=== PATIENT | male | born 1980 | race Two or more races ===

== ENCOUNTER 2023-02-12 20:23 | Inpatient (IN) | payer MEDICAID ==
[~2023-02-12] VITALS: Ht 170.2 cm; Wt 70.2 kg
[2023-02-12] MEDS ORDERED: CLIN300C58 PO (20:51)
[2023-02-12] MEDS ORDERED: 0.9% SODIUM CHLORIDE 10 ML SYRINGE IVP PRN (23:00)
[2023-02-12] MEDS ORDERED: HYDROCODONE/ACETAMINOPHEN 5-325 MG TABLET PO ONE (23:00)
[2023-02-12 23:27] LABS: BASOPHILS % (AUTO) 0.4 % (0.0-2.0); EOSINOPHILS % (AUTO) 0 % (1.0-6.0); HEMATOCRIT 42.9 % (41-53); HEMOGLOBIN 14.3 g/dL (13.5-17.5); LYMPHOCYTES # (AUTO) 0.9 K/uL (1.0-4.8); LYMPHOCYTES % (AUTO) 6.9 % (22.0-44.0); MEAN CORPUSCULAR HEMOGLOBIN 31.9 pg (26.0-34.0); MEAN CORPUSCULAR HGB CONC 33.3 G/dL (31.0-37.0); MEAN CORPUSCULAR VOLUME 96 fL (80-100); MONOCYTES # (AUTO) 0.2 K/uL (0.1-1.0); MONOCYTES % (AUTO) 1.3 % (2.0-9.0); NEUTROPHILS # (AUTO) 11.5 K/uL (1.8-7.7); PLATELET COUNT (AUTO) 438 K/uL (150-450); RED BLOOD CELL COUNT(AUTO) 4.48 MIL/uL (4.50-5.90); RED CELL DISTRIBUTION WIDTH 11.9 % (11.5-14.5); WHITE BLOOD COUNT (AUTO) 12.6 K/uL (4.5-11.0)
[2023-02-12 23:31] LABS: NEUTROPHILS % (AUTO) 91.4 % (40.0-70.0)
[2023-02-12] MEDS ORDERED: LIDOCAINE 1% 10 ML VIAL SQ ONE (23:45)
[2023-02-12] MEDS ORDERED: POVIDONE-IODINE 10% 120 ML SOLUTION TP ONE (23:45)
[2023-02-12 23:47] LABS: ALANINE AMINOTRANSFERASE 48 U/L (12-78); ALBUMIN 3.3 g/dL (3.4-5.0); ALKALINE PHOSPHATASE 161 U/L (46-116); ANION GAP 10 mmol/L (8-16); ASPARTATE AMINOTRANSFERASE 16 U/L (15-37); BILIRUBIN,TOTAL 0.3 mg/dL (0.1-1.0); CALCIUM, TOTAL 9.8 mg/dL (8.8-10.5); CARBON DIOXIDE 26 mmol/L (22-29); CHLORIDE 96 mmol/L (98-107); CREATININE 0.83 mg/dL (0.60-1.30); GLOMERULAR FILTR. RATE CALC > 60 mL/min (>60); POTASSIUM 4.5 mmol/L (3.5-5.1); SODIUM SERUM 132 mmol/L (136-145); TOTAL PROTEIN, SERUM 8.6 g/dL (6.4-8.2); UREA NITROGEN, BLOOD 27 mg/dL (7-18)
[2023-02-13 00:07] LABS: GLUCOSE,RANDOM 433 mg/dL (70-110)
[2023-02-13] MEDS ORDERED: VANCOMYCIN 1GM/WATER(PEG/NADA) 200 ML IV ONE (00:30)
[2023-02-13] MEDS ORDERED: INSULIN REGULAR, HUMAN 100 UNITS/ML SQ ONE (00:30)
[2023-02-13] MEDS ORDERED: PIPERACILLIN/TAZO 3.375 GM/D5W 50 ML IV ONE (00:30)
[2023-02-13] MEDS ORDERED: ACETAMINOPHEN 325 MG TABLET PO PRN ×2 (01:00→09:15)
[2023-02-13] MEDS ORDERED: ONDANSETRON HCL 4 MG/2 ML VIAL IVP PRN ×2 (01:00→09:15)
[2023-02-13 04:00] VITALS: BP 123/80; PULSE 84; RESP 20; TEMP 98
[2023-02-13 08:13] VITALS: BP 117/75; PULSE 76; RESP 18; TEMP 98
[2023-02-13] MEDS ORDERED: BISACODYL 10 MG RECTAL RECTAL SUPPOSITORY PR PRN (09:15)
[2023-02-13] MEDS ORDERED: MAGNESIUM HYDROXIDE SUSPENSION 30 ML UDCUP PO PRN (09:15)
[2023-02-13] MEDS ORDERED: DEXTROSE 50%-WATER 25 GM/50 ML SYRINGE IVP PRN (09:15)
[2023-02-13 09:32] LABS: GLUCOMETER DEV NAME(LOC) 6S.1B; GLUCOSE,POINT OF CARE 219 MG/DL (70-110)
[2023-02-13] MEDS ORDERED: VANCOMYCIN HCL 750 MG in DEXTROSE 5%-WATER 250 ML IV ONE (10:00)
[2023-02-13] MEDS ORDERED: SODIUM CHLORIDE 0.9% 250 ML IV ONE (10:31)
[2023-02-13] MEDS: INSULIN LISPRO 100 UNITS/ML SQ PRN ×3 (11:27→21:54)
[2023-02-13 15:26] VITALS: BP 116/75; PULSE 72; RESP 18; TEMP 98.4
[2023-02-13] MEDS: HYDROCODONE/ACETAMINOPHEN 5-325 MG TABLET PO PRN (15:45)
[2023-02-13] MEDS: HEPARIN SODIUM,PORCINE 5,000 UNITS/ML VIAL SQ SCH (15:45)
[2023-02-13] MEDS: VANCOMYCIN HCL 750 MG in DEXTROSE 5%-WATER 250 ML IV SCH (16:08)
[2023-02-13] MEDS: MORPHINE SULFATE 2 MG/ML SYRINGE IVP PRN (20:07)
[2023-02-13] MEDS: DOCUSATE SODIUM 100 MG CAPSULE PO SCH (20:08)
[2023-02-13 20:47] VITALS: BP 122/79; PULSE 77; RESP 18; TEMP 98
[2023-02-13 22:15] LABS: COVID AG,FIA SOURCE NASAL SWAB
[2023-02-13 22:40] LABS: SARS-COV2 (COVID) ANTIGEN,FIA Negative (Negative)
[2023-02-14] MEDS: VANCOMYCIN HCL 750 MG in DEXTROSE 5%-WATER 250 ML IV SCH ×4 (00:08→23:38)
[2023-02-14] MEDS: HEPARIN SODIUM,PORCINE 5,000 UNITS/ML VIAL SQ SCH ×4 (00:08→23:37)
[2023-02-14 01:46] LABS: GLUCOMETER DEV NAME(LOC) 4E.2; GLUCOSE,POINT OF CARE 364 MG/DL (70-110)
[2023-02-14 01:46] LABS: GLUCOMETER DEV NAME(LOC) 4E.2; GLUCOSE,POINT OF CARE 343 MG/DL (70-110)
[2023-02-14 04:17] VITALS: BP 115/72; PULSE 76; RESP 18; TEMP 98.2
[2023-02-14 06:13] LABS: EOSINOPHILS % (AUTO) 3.9 % (1.0-6.0); HEMATOCRIT 39.1 % (41-53); HEMOGLOBIN 13.4 g/dL (13.5-17.5); LYMPHOCYTES # (AUTO) 2.8 K/uL (1.0-4.8); LYMPHOCYTES % (AUTO) 33.4 % (22.0-44.0); MEAN CORPUSCULAR HEMOGLOBIN 32.6 pg (26.0-34.0); MEAN CORPUSCULAR HGB CONC 34.4 G/dL (31.0-37.0); MEAN CORPUSCULAR VOLUME 95 fL (80-100); MONOCYTES # (AUTO) 0.9 K/uL (0.1-1.0); MONOCYTES % (AUTO) 10.4 % (2.0-9.0); NEUTROPHILS # (AUTO) 4.2 K/uL (1.8-7.7); NEUTROPHILS % (AUTO) 51.3 % (40.0-70.0); PLATELET COUNT (AUTO) 420 K/uL (150-450); RED BLOOD CELL COUNT(AUTO) 4.11 MIL/uL (4.50-5.90); RED CELL DISTRIBUTION WIDTH 12.2 % (11.5-14.5); WHITE BLOOD COUNT (AUTO) 8.3 K/uL (4.5-11.0)
[2023-02-14] MEDS: INSULIN LISPRO 100 UNITS/ML SQ PRN ×4 (06:18→20:32)
[2023-02-14 06:21] LABS: GLUCOMETER DEV NAME(LOC) 6S.1B; GLUCOSE,POINT OF CARE 310 MG/DL (70-110)
[2023-02-14 06:31] LABS: ALANINE AMINOTRANSFERASE 58 U/L (12-78); ALBUMIN 2.8 g/dL (3.4-5.0); ALKALINE PHOSPHATASE 126 U/L (46-116); ANION GAP 8 mmol/L (8-16); ASPARTATE AMINOTRANSFERASE 28 U/L (15-37); BILIRUBIN,TOTAL 0.4 mg/dL (0.1-1.0); CALCIUM, TOTAL 9.1 mg/dL (8.8-10.5); CARBON DIOXIDE 26 mmol/L (22-29); CHLORIDE 99 mmol/L (98-107); CREATININE 0.66 mg/dL (0.60-1.30); GLOMERULAR FILTR. RATE CALC > 60 mL/min (>60); GLUCOSE,RANDOM 316 mg/dL (70-110); POTASSIUM 4.1 mmol/L (3.5-5.1); SODIUM SERUM 133 mmol/L (136-145); TOTAL PROTEIN, SERUM 7.1 g/dL (6.4-8.2); UREA NITROGEN, BLOOD 19 mg/dL (7-18)
[2023-02-14] MEDS: PANTOPRAZOLE SODIUM 40 MG DR TABLET PO SCH (07:58)
[2023-02-14] MEDS: DOCUSATE SODIUM 100 MG CAPSULE PO SCH ×2 (07:58→20:22)
[2023-02-14 09:13] VITALS: BP 124/74; PULSE 91; RESP 18; TEMP 98.3
[2023-02-14 16:33] VITALS: BP 120/78; PULSE 87; RESP 19; TEMP 99.3
[2023-02-14 20:10] VITALS: BP 113/70; PULSE 90; RESP 18; TEMP 98.6
[2023-02-14] MEDS: HYDROCODONE/ACETAMINOPHEN 5-325 MG TABLET PO PRN (20:27)
[2023-02-14] MEDS: MORPHINE SULFATE 2 MG/ML SYRINGE IVP PRN (21:51)
[2023-02-15 03:48] VITALS: BP 103/65; PULSE 82; RESP 20; TEMP 98.3
[2023-02-15] MEDS: INSULIN LISPRO 100 UNITS/ML SQ PRN ×3 (05:53→22:58)
[2023-02-15 06:56] LABS: BASOPHILS % (AUTO) 0.9 % (0.0-2.0); EOSINOPHILS % (AUTO) 3.5 % (1.0-6.0); HEMATOCRIT 36.1 % (41-53); HEMOGLOBIN 12.4 g/dL (13.5-17.5); LYMPHOCYTES # (AUTO) 2.8 K/uL (1.0-4.8); LYMPHOCYTES % (AUTO) 23.7 % (22.0-44.0); MEAN CORPUSCULAR HEMOGLOBIN 32.4 pg (26.0-34.0); MEAN CORPUSCULAR HGB CONC 34.2 G/dL (31.0-37.0); MEAN CORPUSCULAR VOLUME 95 fL (80-100); MONOCYTES % (AUTO) 8.8 % (2.0-9.0); NEUTROPHILS # (AUTO) 7.3 K/uL (1.8-7.7); NEUTROPHILS % (AUTO) 63.1 % (40.0-70.0); PLATELET COUNT (AUTO) 384 K/uL (150-450); RED BLOOD CELL COUNT(AUTO) 3.81 MIL/uL (4.50-5.90); WHITE BLOOD COUNT (AUTO) 11.6 K/uL (4.5-11.0)
[2023-02-15 07:10] LABS: ANION GAP 6 mmol/L (8-16); CALCIUM, TOTAL 8.9 mg/dL (8.8-10.5); CARBON DIOXIDE 26 mmol/L (22-29); CHLORIDE 100 mmol/L (98-107); CREATININE 0.63 mg/dL (0.60-1.30); GLOMERULAR FILTR. RATE CALC > 60 mL/min (>60); GLUCOSE,RANDOM 337 mg/dL (70-110); POTASSIUM 4.1 mmol/L (3.5-5.1); SODIUM SERUM 132 mmol/L (136-145); UREA NITROGEN, BLOOD 17 mg/dL (7-18); VANCOMYCIN,RANDOM 21.5 mcg/mL (25.0-50.0)
[2023-02-15 08:14] VITALS: BP 120/77; PULSE 85; RESP 20; TEMP 98.4
[2023-02-15] MEDS: HEPARIN SODIUM,PORCINE 5,000 UNITS/ML VIAL SQ SCH ×3 (08:16→23:28)
[2023-02-15] MEDS: VANCOMYCIN HCL 750 MG in DEXTROSE 5%-WATER 250 ML IV SCH ×2 (08:16→17:12)
[2023-02-15] MEDS: PANTOPRAZOLE SODIUM 40 MG DR TABLET PO SCH (08:16)
[2023-02-15] MEDS: DOCUSATE SODIUM 100 MG CAPSULE PO SCH ×2 (08:17→21:00)
[2023-02-15] MEDS: HYDROCODONE/ACETAMINOPHEN 5-325 MG TABLET PO PRN ×2 (09:16→18:47)
[2023-02-15 16:29] VITALS: BP 126/78; PULSE 82; RESP 20; TEMP 98.8
[2023-02-15 17:21] LABS: GLUCOMETER DEV NAME(LOC) 6N.2B; GLUCOSE,POINT OF CARE 379 MG/DL (70-110)
[2023-02-15 17:26] LABS: GLUCOMETER DEV NAME(LOC) 6S.1B; GLUCOSE,POINT OF CARE 329 MG/DL (70-110)
[2023-02-15 17:26] LABS: GLUCOMETER DEV NAME(LOC) 6S.1B; GLUCOSE,POINT OF CARE 368 MG/DL (70-110)
[2023-02-15 17:26] LABS: GLUCOMETER DEV NAME(LOC) 6S.1B; GLUCOSE,POINT OF CARE 335 MG/DL (70-110)
[2023-02-15 17:47] LABS: GLUCOMETER DEV NAME(LOC) 6S.1B; GLUCOSE,POINT OF CARE 378 MG/DL (70-110)
[2023-02-15 20:20] VITALS: BP 129/80; PULSE 90; RESP 20; TEMP 99.4
[2023-02-15] MEDS ORDERED: DEXTROSE 50%-WATER 25 GM/50 ML SYRINGE IVP PRN (23:45)
[2023-02-16] MEDS: VANCOMYCIN HCL 750 MG in DEXTROSE 5%-WATER 250 ML IV SCH ×4 (00:09→23:50)
[2023-02-16] MEDS ORDERED: SODIUM CHLORIDE 0.9% 500 ML IV ONE (01:33)
[2023-02-16] MEDS: HYDROCODONE/ACETAMINOPHEN 5-325 MG TABLET PO PRN ×3 (01:37→22:45)
[2023-02-16 02:21] LABS: GLUCOMETER DEV NAME(LOC) 6N.2B; GLUCOSE,POINT OF CARE 435 MG/DL (70-110)
[2023-02-16 04:37] VITALS: BP 119/74; PULSE 84; RESP 20; TEMP 98.5
[2023-02-16] MEDS: INSULIN LISPRO 100 UNITS/ML SQ PRN ×4 (06:29→21:11)
[2023-02-16 07:26] LABS: GLUCOMETER DEV NAME(LOC) 6S.1B; GLUCOSE,POINT OF CARE 334 MG/DL (70-110)
[2023-02-16 08:07] VITALS: BP 91/61; PULSE 92; RESP 19; TEMP 97.8
[2023-02-16 08:15] LABS: ANION GAP 7 mmol/L (8-16); CALCIUM, TOTAL 8.7 mg/dL (8.8-10.5); CARBON DIOXIDE 29 mmol/L (22-29); CHLORIDE 98 mmol/L (98-107); GLOMERULAR FILTR. RATE CALC > 60 mL/min (>60); GLUCOSE,RANDOM 331 mg/dL (70-110); POTASSIUM 4.4 mmol/L (3.5-5.1); SODIUM SERUM 134 mmol/L (136-145); UREA NITROGEN, BLOOD 12 mg/dL (7-18)
[2023-02-16 08:21] LABS: BASOPHILS % (AUTO) 0.9 % (0.0-2.0); EOSINOPHILS % (AUTO) 2.5 % (1.0-6.0); HEMATOCRIT 36.1 % (41-53); HEMOGLOBIN 12.4 g/dL (13.5-17.5); LYMPHOCYTES # (AUTO) 2.4 K/uL (1.0-4.8); LYMPHOCYTES % (AUTO) 22.7 % (22.0-44.0); MEAN CORPUSCULAR HEMOGLOBIN 32.6 pg (26.0-34.0); MEAN CORPUSCULAR HGB CONC 34.5 G/dL (31.0-37.0); MEAN CORPUSCULAR VOLUME 95 fL (80-100); MONOCYTES # (AUTO) 1.1 K/uL (0.1-1.0); MONOCYTES % (AUTO) 10.6 % (2.0-9.0); NEUTROPHILS # (AUTO) 6.8 K/uL (1.8-7.7); NEUTROPHILS % (AUTO) 63.3 % (40.0-70.0); PLATELET COUNT (AUTO) 351 K/uL (150-450); RED BLOOD CELL COUNT(AUTO) 3.81 MIL/uL (4.50-5.90); RED CELL DISTRIBUTION WIDTH 11.8 % (11.5-14.5); WHITE BLOOD COUNT (AUTO) 10.7 K/uL (4.5-11.0)
[2023-02-16] MEDS: HEPARIN SODIUM,PORCINE 5,000 UNITS/ML VIAL SQ SCH (08:30)
[2023-02-16] MEDS: PANTOPRAZOLE SODIUM 40 MG DR TABLET PO SCH (08:30)
[2023-02-16] MEDS: DOCUSATE SODIUM 100 MG CAPSULE PO SCH ×4 (08:30→21:05)
[2023-02-16] MEDS ORDERED: BUPIVACAINE HCL/PF 0.25% 30 ML VIAL ONE (09:10)
[2023-02-16] MEDS ORDERED: SODIUM CL IRRIG SOLN BAG 3,000 ML IRRIG ONE ×2 (09:11→09:55)
[2023-02-16] MEDS ORDERED: MUPIROCIN CALCIUM 2% 22 GM OINTMENT ONE (09:11)
[2023-02-16] MEDS ORDERED: RINGERS SOLUTION,LACTATED 1,000 ML IV ONE ×2 (09:12→13:00)
[2023-02-16] MEDS ORDERED: MEPERIDINE-PF 25 MG/ML VIAL IVP PRN (10:00)
[2023-02-16] MEDS ORDERED: HYDROmorphone HCL 2 MG/ML SYRINGE IVP PRN (10:00)
[2023-02-16] MEDS ORDERED: VANCOMYCIN HCL 1 GM/VIAL TP ONE (10:00)
[2023-02-16] MEDS ORDERED: VANCOMYCIN HCL 1 GM/VIAL IRRIG ONE (10:00)
[2023-02-16] MEDS ORDERED: FentaNYL CITRATE PF 100 MCG/2 ML VIAL ONE (10:31)
[2023-02-16] MEDS: FentaNYL CITRATE PF 100 MCG/2 ML VIAL IVP PRN ×2 (10:35→10:49)
[2023-02-16] MEDS ORDERED: HYDROmorphone HCL 2 MG/ML SYRINGE ONE (11:03)
[2023-02-16] MEDS ORDERED: HYDROmorphone HCL 2 MG/ML SYRINGE IVP ONE ×2 (11:15→11:45)
[2023-02-16] MEDS ORDERED: SUGAMMADEX SODIUM 200 MG/2 ML VIAL IVP ONE (12:00)
[2023-02-16] MEDS ORDERED: ROCURONIUM BROMIDE 10 MG/ML 5 ML VIAL IVP ONE (12:00)
[2023-02-16] MEDS ORDERED: KETOROLAC TROMETHAMINE 60 MG/2 ML VIAL IM ONE (12:00)
[2023-02-16] MEDS ORDERED: FentaNYL CITRATE PF 100 MCG/2 ML VIAL IVP ONE (12:00)
[2023-02-16] MEDS ORDERED: MIDAZOLAM HCL 2 MG/2 ML VIAL IVP ONE (12:00)
[2023-02-16] MEDS ORDERED: LIDOCAINE/PF 2% 5 ML VIAL IM ONE (12:00)
[2023-02-16] MEDS ORDERED: ONDANSETRON HCL 4 MG/2 ML VIAL IVP ONE (12:00)
[2023-02-16] MEDS ORDERED: PROPOFOL 1% 20 ML VIAL IVP ONE (12:00)
[2023-02-16] MEDS ORDERED: ACETAMINOPHEN/ISO-OSM 1000 MG/100 ML BOTTLE IV ONE (12:00)
[2023-02-16] MEDS: ENOXAPARIN SODIUM 40 MG/0.4 ML PF SYRINGE SQ SCH (16:22)
[2023-02-16 19:56] LABS: GLUCOMETER DEV NAME(LOC) 4E.2; GLUCOSE,POINT OF CARE 276 MG/DL (70-110)
[2023-02-16 19:56] LABS: GLUCOMETER DEV NAME(LOC) 6N.2B; GLUCOSE,POINT OF CARE 367 MG/DL (70-110)
[2023-02-16 20:14] VITALS: BP 110/68; PULSE 94; RESP 20; TEMP 98.4
[2023-02-16] MEDS: MORPHINE SULFATE 2 MG/ML SYRINGE IVP PRN (21:05)
[2023-02-17 05:03] VITALS: BP 118/70; PULSE 82; RESP 20; TEMP 98.5
[2023-02-17] MEDS: INSULIN LISPRO 100 UNITS/ML SQ PRN ×4 (05:35→21:52)
[2023-02-17 07:45] LABS: GLUCOMETER DEV NAME(LOC) 6N.2B; GLUCOSE,POINT OF CARE 215 MG/DL (70-110)
[2023-02-17 07:51] LABS: GLUCOMETER DEV NAME(LOC) 4E.2; GLUCOSE,POINT OF CARE 302 MG/DL (70-110)
[2023-02-17] MEDS: MORPHINE SULFATE 2 MG/ML SYRINGE IVP PRN (08:05)
[2023-02-17] MEDS: VANCOMYCIN HCL 750 MG in DEXTROSE 5%-WATER 250 ML IV SCH ×3 (08:27→23:23)
[2023-02-17] MEDS: ENOXAPARIN SODIUM 40 MG/0.4 ML PF SYRINGE SQ SCH (08:32)
[2023-02-17] MEDS: DOCUSATE SODIUM 100 MG CAPSULE PO SCH ×2 (08:32→21:00)
[2023-02-17] MEDS: PANTOPRAZOLE SODIUM 40 MG DR TABLET PO SCH (08:32)
[2023-02-17 08:55] VITALS: BP 122/76; PULSE 61; RESP 20; TEMP 98.2
[2023-02-17 10:12] LABS: ANION GAP 6 mmol/L (8-16); CALCIUM, TOTAL 8.6 mg/dL (8.8-10.5); CARBON DIOXIDE 29 mmol/L (22-29); CHLORIDE 99 mmol/L (98-107); CREATININE 0.63 mg/dL (0.60-1.30); GLOMERULAR FILTR. RATE CALC > 60 mL/min (>60); GLUCOSE,RANDOM 306 mg/dL (70-110); SODIUM SERUM 134 mmol/L (136-145); UREA NITROGEN, BLOOD 11 mg/dL (7-18)
[2023-02-17 15:31] LABS: C-REACTIVE PROTEIN QUANT 2.86 mg/dL (0.00-0.30)
[2023-02-17] MEDS: HYDROCODONE/ACETAMINOPHEN 5-325 MG TABLET PO PRN (15:47)
[2023-02-17 16:16] LABS: GLUCOMETER DEV NAME(LOC) 4E.2; GLUCOSE,POINT OF CARE 198 MG/DL (70-110)
[2023-02-17 19:40] VITALS: BP 125/70; PULSE 98; RESP 20; TEMP 99.2; TEMP 99.8
[2023-02-17] MEDS: OXYGEN THERAPY IH SCH (20:00)
[2023-02-17 22:11] LABS: GLUCOMETER DEV NAME(LOC) 4E.2; GLUCOSE,POINT OF CARE 284 MG/DL (70-110)
[2023-02-18 04:00] VITALS: BP 119/68; PULSE 86; RESP 20; TEMP 98
[2023-02-18] MEDS: HYDROCODONE/ACETAMINOPHEN 5-325 MG TABLET PO PRN ×3 (04:26→20:04)
[2023-02-18 05:21] LABS: GLUCOMETER DEV NAME(LOC) 6N.2B; GLUCOSE,POINT OF CARE 362 MG/DL (70-110)
[2023-02-18] MEDS: INSULIN LISPRO 100 UNITS/ML SQ PRN ×4 (05:36→21:55)
[2023-02-18 05:56] LABS: GLUCOMETER DEV NAME(LOC) 6S.1B; GLUCOSE,POINT OF CARE 294 MG/DL (70-110)
[2023-02-18 07:40] VITALS: BP 99/65; PULSE 87; RESP 20; TEMP 98.3
[2023-02-18 07:47] LABS: ANION GAP 7 mmol/L (8-16); CALCIUM, TOTAL 8.9 mg/dL (8.8-10.5); CARBON DIOXIDE 28 mmol/L (22-29); CHLORIDE 99 mmol/L (98-107); CREATININE 0.61 mg/dL (0.60-1.30); GLOMERULAR FILTR. RATE CALC > 60 mL/min (>60); GLUCOSE,RANDOM 294 mg/dL (70-110); POTASSIUM 3.8 mmol/L (3.5-5.1); SODIUM SERUM 134 mmol/L (136-145); UREA NITROGEN, BLOOD 13 mg/dL (7-18); VANCOMYCIN,RANDOM 16.3 mcg/mL (25.0-50.0)
[2023-02-18] MEDS: VANCOMYCIN HCL 750 MG in DEXTROSE 5%-WATER 250 ML IV SCH ×2 (08:07→17:20)
[2023-02-18] MEDS: ENOXAPARIN SODIUM 40 MG/0.4 ML PF SYRINGE SQ SCH (08:07)
[2023-02-18] MEDS: PANTOPRAZOLE SODIUM 40 MG DR TABLET PO SCH (08:08)
[2023-02-18] MEDS: DOCUSATE SODIUM 100 MG CAPSULE PO SCH ×2 (09:00→21:00)
[2023-02-18 15:55] VITALS: BP 131/85; PULSE 90; RESP 20; TEMP 98.2
[2023-02-18] MEDS ORDERED: SODIUM CHLORIDE 0.9% 500 ML IV ONE (17:26)
[2023-02-18 18:01] LABS: GLUCOMETER DEV NAME(LOC) 6S.1B; GLUCOSE,POINT OF CARE 246 MG/DL (70-110)
[2023-02-18 19:48] VITALS: BP 135/81; PULSE 89; RESP 20; TEMP 98.1
[2023-02-18] MEDS: OXYGEN THERAPY IH SCH (20:00)
[2023-02-18] MEDS: MORPHINE SULFATE 2 MG/ML SYRINGE IVP PRN (21:58)
[2023-02-18 22:01] LABS: GLUCOMETER DEV NAME(LOC) 4E.2; GLUCOSE,POINT OF CARE 324 MG/DL (70-110)
[2023-02-19] MEDS: VANCOMYCIN HCL 750 MG in DEXTROSE 5%-WATER 250 ML IV SCH ×2 (00:06→08:15)
[2023-02-19 04:14] VITALS: BP 105/59; PULSE 85; RESP 20; TEMP 97.7
[2023-02-19 06:06] LABS: GLUCOMETER DEV NAME(LOC) 6S.1B; GLUCOSE,POINT OF CARE 338 MG/DL (70-110)
[2023-02-19] MEDS: INSULIN LISPRO 100 UNITS/ML SQ PRN ×4 (06:06→20:13)
[2023-02-19 06:54] LABS: ANION GAP 7 mmol/L (8-16); C-REACTIVE PROTEIN QUANT 2.31 mg/dL (0.00-0.30); CALCIUM, TOTAL 8.8 mg/dL (8.8-10.5); CARBON DIOXIDE 28 mmol/L (22-29); CHLORIDE 99 mmol/L (98-107); CREATININE 0.66 mg/dL (0.60-1.30); GLOMERULAR FILTR. RATE CALC > 60 mL/min (>60); GLUCOSE,RANDOM 293 mg/dL (70-110); SODIUM SERUM 134 mmol/L (136-145); UREA NITROGEN, BLOOD 10 mg/dL (7-18)
[2023-02-19 07:06] LABS: GLUCOMETER DEV NAME(LOC) 6S.1B; GLUCOSE,POINT OF CARE 289 MG/DL (70-110)
[2023-02-19] MEDS: OXYGEN THERAPY IH SCH (08:00)
[2023-02-19] MEDS: ENOXAPARIN SODIUM 40 MG/0.4 ML PF SYRINGE SQ SCH (08:15)
[2023-02-19] MEDS: PANTOPRAZOLE SODIUM 40 MG DR TABLET PO SCH (08:15)
[2023-02-19] MEDS: DOCUSATE SODIUM 100 MG CAPSULE PO SCH ×2 (08:16→20:03)
[2023-02-19 13:57] LABS: GLUCOMETER DEV NAME(LOC) 6S.1B; GLUCOSE,POINT OF CARE 390 MG/DL (70-110)
[2023-02-19] MEDS: CeFAZolin 2 GM/DEXTROSE 50 ML IV SCH ×2 (14:46→21:03)
[2023-02-19 19:50] VITALS: BP 127/75; PULSE 91; RESP 20; TEMP 98.5
[2023-02-19 20:11] LABS: GLUCOMETER DEV NAME(LOC) 4E.2; GLUCOSE,POINT OF CARE 328 MG/DL (70-110)
[2023-02-19 23:36] LABS: GLUCOMETER DEV NAME(LOC) 6N.2B; GLUCOSE,POINT OF CARE 291 MG/DL (70-110)
[2023-02-20 04:15] VITALS: BP 124/82; PULSE 88; RESP 20; TEMP 98.4
[2023-02-20] MEDS: HYDROCODONE/ACETAMINOPHEN 5-325 MG TABLET PO PRN ×2 (05:49→11:09)
[2023-02-20] MEDS: CeFAZolin 2 GM/DEXTROSE 50 ML IV SCH ×3 (05:49→21:01)
[2023-02-20] MEDS: ZOLPIDEM TARTRATE 5 MG TABLET PO PRN (05:49)
[2023-02-20] MEDS: INSULIN LISPRO 100 UNITS/ML SQ PRN ×4 (05:50→20:49)
[2023-02-20 06:50] LABS: GLUCOMETER DEV NAME(LOC) 4E.2; GLUCOSE,POINT OF CARE 296 MG/DL (70-110)
[2023-02-20 07:04] LABS: ANION GAP 7 mmol/L (8-16); CALCIUM, TOTAL 9.1 mg/dL (8.8-10.5); CARBON DIOXIDE 29 mmol/L (22-29); CHLORIDE 99 mmol/L (98-107); CREATININE 0.61 mg/dL (0.60-1.30); GLOMERULAR FILTR. RATE CALC > 60 mL/min (>60); GLUCOSE,RANDOM 311 mg/dL (70-110); POTASSIUM 4.1 mmol/L (3.5-5.1); SODIUM SERUM 135 mmol/L (136-145); UREA NITROGEN, BLOOD 11 mg/dL (7-18)
[2023-02-20] MEDS: OXYGEN THERAPY IH SCH (08:00)
[2023-02-20 08:26] VITALS: BP 125/78; PULSE 95; RESP 20; TEMP 98.6
[2023-02-20] MEDS: PANTOPRAZOLE SODIUM 40 MG DR TABLET PO SCH (08:51)
[2023-02-20] MEDS: ENOXAPARIN SODIUM 40 MG/0.4 ML PF SYRINGE SQ SCH (08:51)
[2023-02-20] MEDS: DOCUSATE SODIUM 100 MG CAPSULE PO SCH ×2 (08:54→20:50)
[2023-02-20 14:16] LABS: GLUCOMETER DEV NAME(LOC) 4E.2; GLUCOSE,POINT OF CARE 416 MG/DL (70-110)
[2023-02-20] MEDS ORDERED: METF-1211 PO (15:26)
[2023-02-20 17:48] VITALS: BP 129/91; PULSE 93; RESP 20; TEMP 98
[2023-02-20] MEDS: MetFORMIN HCL 500 MG TABLET PO SCH (17:50)
[2023-02-20 19:30] VITALS: BP 116/72; PULSE 98; RESP 20; TEMP 98.4
[2023-02-20 19:36] LABS: GLUCOMETER DEV NAME(LOC) 4E.2; GLUCOSE,POINT OF CARE 291 MG/DL (70-110)
[2023-02-20 23:36] LABS: GLUCOMETER DEV NAME(LOC) 6S.1B; GLUCOSE,POINT OF CARE 328 MG/DL (70-110)
[2023-02-21] MEDS: ZOLPIDEM TARTRATE 5 MG TABLET PO PRN ×2 (02:39→22:22)
[2023-02-21] MEDS: HYDROCODONE/ACETAMINOPHEN 5-325 MG TABLET PO PRN ×2 (02:39→21:38)
[2023-02-21 04:47] VITALS: BP 103/68; PULSE 97; RESP 20; TEMP 98.2
[2023-02-21] MEDS: CeFAZolin 2 GM/DEXTROSE 50 ML IV SCH ×3 (06:02→21:25)
[2023-02-21] MEDS: INSULIN LISPRO 100 UNITS/ML SQ PRN ×4 (06:11→21:38)
[2023-02-21 07:29] LABS: BASOPHILS % (AUTO) 1.1 % (0.0-2.0); EOSINOPHILS % (AUTO) 3.7 % (1.0-6.0); HEMATOCRIT 32.3 % (41-53); HEMOGLOBIN 11.3 g/dL (13.5-17.5); LYMPHOCYTES # (AUTO) 2.1 K/uL (1.0-4.8); LYMPHOCYTES % (AUTO) 31.8 % (22.0-44.0); MEAN CORPUSCULAR HEMOGLOBIN 32.7 pg (26.0-34.0); MEAN CORPUSCULAR HGB CONC 34.9 G/dL (31.0-37.0); MEAN CORPUSCULAR VOLUME 94 fL (80-100); MONOCYTES # (AUTO) 0.7 K/uL (0.1-1.0); MONOCYTES % (AUTO) 9.9 % (2.0-9.0); NEUTROPHILS # (AUTO) 3.5 K/uL (1.8-7.7); NEUTROPHILS % (AUTO) 53.5 % (40.0-70.0); PLATELET COUNT (AUTO) 287 K/uL (150-450); RED BLOOD CELL COUNT(AUTO) 3.44 MIL/uL (4.50-5.90); WHITE BLOOD COUNT (AUTO) 6.6 K/uL (4.5-11.0)
[2023-02-21 07:33] LABS: ANION GAP 7 mmol/L (8-16); CALCIUM, TOTAL 8.8 mg/dL (8.8-10.5); CARBON DIOXIDE 27 mmol/L (22-29); CHLORIDE 101 mmol/L (98-107); CREATININE 0.71 mg/dL (0.60-1.30); GLOMERULAR FILTR. RATE CALC > 60 mL/min (>60); GLUCOSE,RANDOM 299 mg/dL (70-110); POTASSIUM 3.8 mmol/L (3.5-5.1); SODIUM SERUM 135 mmol/L (136-145); UREA NITROGEN, BLOOD 14 mg/dL (7-18)
[2023-02-21 08:13] VITALS: BP 99/58; PULSE 67; RESP 19; TEMP 98.5
[2023-02-21] MEDS: DOCUSATE SODIUM 100 MG CAPSULE PO SCH ×3 (09:00→21:00)
[2023-02-21] MEDS: MetFORMIN HCL 500 MG TABLET PO SCH ×2 (09:19→18:22)
[2023-02-21] MEDS: ENOXAPARIN SODIUM 40 MG/0.4 ML PF SYRINGE SQ SCH ×2 (09:19→09:50)
[2023-02-21] MEDS: PANTOPRAZOLE SODIUM 40 MG DR TABLET PO SCH (09:19)
[2023-02-21 15:06] LABS: GLUCOMETER DEV NAME(LOC) 4E.2; GLUCOSE,POINT OF CARE 285 MG/DL (70-110)
[2023-02-21 15:06] LABS: GLUCOMETER DEV NAME(LOC) 6S.1B; GLUCOSE,POINT OF CARE 340 MG/DL (70-110)
[2023-02-21 16:20] VITALS: BP 119/79; PULSE 73; RESP 18; TEMP 97.9
[2023-02-21 18:21] LABS: GLUCOMETER DEV NAME(LOC) 6S.1B; GLUCOSE,POINT OF CARE 254 MG/DL (70-110)
[2023-02-21 19:20] VITALS: BP 124/78; PULSE 93; RESP 20; TEMP 98.4
[2023-02-21] MEDS: OXYGEN THERAPY IH SCH (20:00)
[2023-02-22 01:16] LABS: GLUCOMETER DEV NAME(LOC) 6S.1B; GLUCOSE,POINT OF CARE 343 MG/DL (70-110)
[2023-02-22 03:51] VITALS: BP 119/72; PULSE 84; RESP 18; TEMP 98.5
[2023-02-22] MEDS: CeFAZolin 2 GM/DEXTROSE 50 ML IV SCH ×3 (05:53→22:00)
[2023-02-22] MEDS: INSULIN LISPRO 100 UNITS/ML SQ PRN ×4 (05:57→20:31)
[2023-02-22 07:08] LABS: ANION GAP 6 mmol/L (8-16); C-REACTIVE PROTEIN QUANT 0.62 mg/dL (0.00-0.30); CALCIUM, TOTAL 8.9 mg/dL (8.8-10.5); CARBON DIOXIDE 29 mmol/L (22-29); CHLORIDE 102 mmol/L (98-107); CREATININE 0.66 mg/dL (0.60-1.30); GLOMERULAR FILTR. RATE CALC > 60 mL/min (>60); GLUCOSE,RANDOM 239 mg/dL (70-110); POTASSIUM 4.1 mmol/L (3.5-5.1); SODIUM SERUM 137 mmol/L (136-145); UREA NITROGEN, BLOOD 17 mg/dL (7-18)
[2023-02-22] MEDS: OXYGEN THERAPY IH SCH ×2 (08:00→20:00)
[2023-02-22 09:01] LABS: GLUCOMETER DEV NAME(LOC) 6S.1B; GLUCOSE,POINT OF CARE 209 MG/DL (70-110)
[2023-02-22] MEDS: PANTOPRAZOLE SODIUM 40 MG DR TABLET PO SCH (09:34)
[2023-02-22] MEDS: MetFORMIN HCL 500 MG TABLET PO SCH ×2 (09:34→18:44)
[2023-02-22] MEDS: ENOXAPARIN SODIUM 40 MG/0.4 ML PF SYRINGE SQ SCH (09:34)
[2023-02-22] MEDS: DOCUSATE SODIUM 100 MG CAPSULE PO SCH ×2 (09:34→20:32)
[2023-02-22 14:31] LABS: GLUCOMETER DEV NAME(LOC) 6S.1B; GLUCOSE,POINT OF CARE 276 MG/DL (70-110)
[2023-02-22 19:56] LABS: GLUCOMETER DEV NAME(LOC) 6S.1B; GLUCOSE,POINT OF CARE 269 MG/DL (70-110)
[2023-02-22 20:07] VITALS: BP 131/58; PULSE 89; RESP 18; TEMP 99
[2023-02-22] MEDS: HYDROCODONE/ACETAMINOPHEN 5-325 MG TABLET PO PRN (22:06)
[2023-02-22] MEDS: ZOLPIDEM TARTRATE 5 MG TABLET PO PRN (22:06)
[2023-02-22 23:31] LABS: GLUCOMETER DEV NAME(LOC) 4E.2; GLUCOSE,POINT OF CARE 278 MG/DL (70-110)
[2023-02-23 03:40] VITALS: BP 115/74; PULSE 89; RESP 18; TEMP 98.5
[2023-02-23] MEDS: CeFAZolin 2 GM/DEXTROSE 50 ML IV SCH ×3 (05:52→21:50)
[2023-02-23] MEDS: INSULIN LISPRO 100 UNITS/ML SQ PRN ×4 (05:52→20:24)
[2023-02-23 06:36] LABS: GLUCOMETER DEV NAME(LOC) 6N.2B; GLUCOSE,POINT OF CARE 217 MG/DL (70-110)
[2023-02-23 07:37] VITALS: BP 118/76; PULSE 90; RESP 18; TEMP 98.4
[2023-02-23] MEDS: PANTOPRAZOLE SODIUM 40 MG DR TABLET PO SCH (08:52)
[2023-02-23] MEDS: DOCUSATE SODIUM 100 MG CAPSULE PO SCH ×3 (08:53→20:24)
[2023-02-23] MEDS: MetFORMIN HCL 500 MG TABLET PO SCH ×2 (08:53→17:39)
[2023-02-23] MEDS: ENOXAPARIN SODIUM 40 MG/0.4 ML PF SYRINGE SQ SCH (08:55)
[2023-02-23 09:35] LABS: ANION GAP 10 mmol/L (8-16); CALCIUM, TOTAL 9.2 mg/dL (8.8-10.5); CARBON DIOXIDE 27 mmol/L (22-29); CHLORIDE 105 mmol/L (98-107); CREATININE 0.67 mg/dL (0.60-1.30); GLOMERULAR FILTR. RATE CALC > 60 mL/min (>60); GLUCOSE,RANDOM 216 mg/dL (70-110); POTASSIUM 3.9 mmol/L (3.5-5.1); SODIUM SERUM 142 mmol/L (136-145); UREA NITROGEN, BLOOD 13 mg/dL (7-18)
[2023-02-23] MEDS: MUPIROCIN CALCIUM 2% 22 GM OINTMENT TP SCH (11:15)
[2023-02-23] MEDS ORDERED: CHLORHEXIDINE GLUCONATE 4% 118 ML TOPICAL LIQUID TP SCH (11:15)
[2023-02-23 13:26] LABS: GLUCOMETER DEV NAME(LOC) 4E.2; GLUCOSE,POINT OF CARE 268 MG/DL (70-110)
[2023-02-23] MEDS ORDERED: CEFA2PIG IV (14:26)
[2023-02-23 19:34] VITALS: BP 139/82; PULSE 90; RESP 18; TEMP 98.9
[2023-02-23] MEDS: OXYGEN THERAPY IH SCH (20:00)
[2023-02-23] MEDS ORDERED: SODIUM CHLORIDE 0.9% 250 ML IV ONE (21:52)
[2023-02-23] MEDS: HYDROCODONE/ACETAMINOPHEN 5-325 MG TABLET PO PRN (23:48)
[2023-02-24 00:56] LABS: GLUCOMETER DEV NAME(LOC) 6N.2B; GLUCOSE,POINT OF CARE 254 MG/DL (70-110)
[2023-02-24 00:56] LABS: GLUCOMETER DEV NAME(LOC) 4E.2; GLUCOSE,POINT OF CARE 200 MG/DL (70-110)
[2023-02-24 04:33] VITALS: BP 127/80; PULSE 86; RESP 20; TEMP 98.5
[2023-02-24] MEDS: MORPHINE SULFATE 2 MG/ML SYRINGE IVP PRN (04:36)
[2023-02-24] MEDS: CeFAZolin 2 GM/DEXTROSE 50 ML IV SCH (06:00)
[2023-02-24] MEDS: INSULIN LISPRO 100 UNITS/ML SQ PRN (06:03)
[2023-02-24 06:36] LABS: GLUCOMETER DEV NAME(LOC) 6N.2B; GLUCOSE,POINT OF CARE 200 MG/DL (70-110)
[2023-02-24 07:30] LABS: ANION GAP 11 mmol/L (8-16); CARBON DIOXIDE 27 mmol/L (22-29); CHLORIDE 104 mmol/L (98-107); CREATININE 0.67 mg/dL (0.60-1.30); GLOMERULAR FILTR. RATE CALC > 60 mL/min (>60); GLUCOSE,RANDOM 203 mg/dL (70-110); POTASSIUM 3.9 mmol/L (3.5-5.1); SODIUM SERUM 142 mmol/L (136-145); UREA NITROGEN, BLOOD 9 mg/dL (7-18)
[2023-02-24 07:34] VITALS: BP 129/69; PULSE 82; RESP 20; TEMP 98.3
[2023-02-24] MEDS: OXYGEN THERAPY IH SCH (08:00)
[2023-02-24] MEDS: PANTOPRAZOLE SODIUM 40 MG DR TABLET PO SCH (08:30)
[2023-02-24] MEDS: MetFORMIN HCL 500 MG TABLET PO SCH (08:30)
[2023-02-24] MEDS: ENOXAPARIN SODIUM 40 MG/0.4 ML PF SYRINGE SQ SCH (08:34)
[2023-02-24] MEDS: MUPIROCIN CALCIUM 2% 22 GM OINTMENT TP SCH (08:36)
[2023-02-24] MEDS: DOCUSATE SODIUM 100 MG CAPSULE PO SCH (08:38)
== END 2023-02-24 10:36 | disposition home health service (06) | DRG 313 ==
LOC: EMS 20:27 → 6N 02-13 03:06
PROVIDERS: ADMIT Internal Medicine; ATTEND Internal Medicine
PROC: 0S9D0ZZ Drainage of Left Knee Joint, Open Approach (ICD-10-PCS; 2023-02-16)
PROC: 0SBD0ZZ Excision of Left Knee Joint, Open Approach (ICD-10-PCS; principal; 2023-02-16 09:15)
PROC: 05H933Z Insertion of Infusion Device into Right Brachial Vein, Percutaneous Approach (ICD-10-PCS; 2023-02-19)
PROC: 02HV33Z Insertion of Infusion Device into Superior Vena Cava, Percutaneous Approach (ICD-10-PCS; 2023-02-21)
DX: M70.42 Prepatellar bursitis, left knee (principal); R65.10 Systemic inflammatory response syndrome (SIRS) of non-infectious origin without acute organ dysfunction; M00.862 Arthritis due to other bacteria, left knee; E11.69 Type 2 diabetes mellitus with other specified complication; M86.8X6 Other osteomyelitis, lower leg; Z20.822 Contact with and (suspected) exposure to COVID-19; L02.416 Cutaneous abscess of left lower limb; L03.116 Cellulitis of left lower limb; E11.65 Type 2 diabetes mellitus with hyperglycemia; Z79.84 Long term (current) use of oral hypoglycemic drugs; M00.9 Pyogenic arthritis, unspecified
CPT/HCPCS: 36245; 36569; 71045; 73700; 73723; 76937; 80048; 80053; 80202; 82962; 83036; 83605; 84145; 85025; 86140; 87015; 87040; 87070; 87101; 87186; 87205; 87206; 88304; 97110; 97116; 97162; 97167; 97530; 97535; 99291; J0131; J0690; J1170; J1644; J1650; J1815; J1885; J2250; J2270; J2405; J2543; J2704; J3010; J3370; J3490; J7040; J7050; J7060; J7120; Q9967; 36415-L1; 36415-TC; Z7610